=== PATIENT | female | born 1995 | race Caucasian/White ===

== ENCOUNTER 2020-06-30 12:31 | Outpatient (CLI) ==
[~2020-06-30] VITALS: Ht 162.6 cm; Wt 85.8 kg
[2020-06-30 13:06] VITALS: BP 135/83
--- NOTE | 2020-06-30 13:40 | IPNPDOC ---
Obstetrical Progress Note Date of Service June 30, 2020 Subjective 24 yo at 36w5d with FELICITAS of 23 JUL 2020 presents to L&d with complaints of facial numbness after chewing on a piece of gum that lasted for 20 minutes at 1030 today and has now since been resolved. She denies eating anything odd or new. She denies any food allergies or sensitivities. She denies contractions, leaking of fluid, vaginal bleeding, and reports positive movement. Objective Vital Signs Date Time Temp Pulse Resp B/P (MAP) Pulse Ox O2 Delivery O2 Flow Rate FiO2 06/30/20 13:06 98.4 88 16 135/83 (100) 99 Assessment Heart Rate (FHR): 135 Variability: Moderate Accelerations: Positive Decelerations: None Tocometer Contractions: No Assessment and Plan Age: 24 : 2 Term: 1 Pre-term: 0 Abortions: 0 Livin Weeks & Days 36w5d Status: Reassuring Anticipate: Other (Discharge to home, certified not in labor) Additional Comments Discussed with her that symptoms are not related Recommended to follow up with PCM to further evaluate cause of facial numbness FKC and PTL precautions discussed Keep all 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 FENG VILLEGAS CNM June 30, 2020 13:40
== END 2020-06-30 13:42 | disposition home or self-care (01) ==
LOC: M LDO 12:31
PROVIDERS: ATTEND Registered Nurse Maternal Newborn
DX: O26.893 Other specified pregnancy related conditions, third trimester (principal); R20.0 Anesthesia of skin; Z3A.36 36 weeks gestation of pregnancy
CPT/HCPCS: 59025; G0378; G0463

== ENCOUNTER 2020-07-13 03:18 | Outpatient (CLI) ==
[~2020-07-13] VITALS: Ht 162.6 cm; Wt 86.4 kg
[2020-07-13 03:40] VITALS: BP 136/80
[2020-07-13] MEDS ORDERED: PRENTAB9 PO (03:53)
[2020-07-13 03:55] VITALS: BP 122/73
[2020-07-13 06:00] VITALS: BP 117/55
--- NOTE | 2020-07-13 06:33 | IPNPDOC ---
Text Note Date of Service The patient was seen on 07/13/20. NOTE 24 yo at 38+4 weeks gestation presented to L&D with the complaint of leakage of fluid at ~0330. It happened once, and has not been happening since. She denies any bleeding. She endorses mild cramping. She also endorses movement. Chaperoned by RN Vitals - VSS, afebrile, normotensive, non tachycardic General - Laying in bed, AAOX3, NAD Abdomen - Gravid uterus, no fundal tenderness Pelvic - Normal external female genitalia. Speculum inserted into the vagina. Scant amount of white discharge in vaginal vault. Negative pooling. Swabs obtained. Speculum removed. Cervix cl/thick/high to digital exam. Microscopy - negative nitrazine, negative ferning. FHR tracing - Cat I with moderate variability, +accels, no decels. No ctx on toco. Negative SROM workup with negative pooling, negative nitrazine, and negative ferning. Cervix closed. Reassuring status. Patient discharged with return precautions. Follow up scheduled on Sunday in the office. All questions answered. 20 minutes of patient care DO EL Castanon Fishbone, I+O VS, Amarie, I+O Vital Signs Date Time Temp Pulse Resp B/P (MAP) Pulse Ox O2 Delivery O2 Flow Rate FiO2 07/13/20 03:55 103 18 122/73 (89) 07/13/20 03:40 98.6 AMANDA LARKIN DO Jul 13, 2020 06:33
== END 2020-07-13 06:30 | disposition home or self-care (01) ==
LOC: M LDO 03:18
PROVIDERS: ATTEND Obstetrics & Gynecology
DX: O26.893 Other specified pregnancy related conditions, third trimester (principal); Z3A.38 38 weeks gestation of pregnancy; N89.8 Other specified noninflammatory disorders of vagina
CPT/HCPCS: 59025; G0378; G0463

== ENCOUNTER 2020-07-18 19:10 | Inpatient (IN) | payer OTHER ==
[~2020-07-18] VITALS: Ht 162.6 cm; Wt 88.2 kg
[~2020-07-18 19:10] MED LIST: PRENTAB9 PO
[2020-07-18 19:30] VITALS: BP 151/74
[2020-07-18 19:55] VITALS: BP 144/90
[2020-07-18 19:56] VITALS: BP 149/94
[2020-07-18] MEDS ORDERED: CARBOPROST TROMETHAMINE 250 MCG/ML AMP IM PRN (20:05)
[2020-07-18] MEDS ORDERED: OXYTOCIN DRIP 30 UNITS in IV 1 EA IV PRN ×6 (20:05)
[2020-07-18] MEDS ORDERED: OXYTOCIN INJ 10 UNITS/ML VIAL (J2590) IM PRN (20:05)
[2020-07-18] MEDS ORDERED: OXYTOCIN INJ 10 UNITS/ML VIAL (J2590) IV PRN (20:05)
[2020-07-18] MEDS ORDERED: METHYLERGONOVINE MALEATE 0.2 MG/ML VIAL (J2210) IM PRN (20:05)
[2020-07-18] MEDS ORDERED: TRANEXAMIC ACID INJection 1,000 MG in NS 100 ML IV PRN (20:05)
--- NOTE | 2020-07-18 20:16 | HPEPDOC ---
Obstetrical History & Physical General Date of Admission Jul 18, 2020 at 20:09 History of Present Illness Mrs. Alice Can is a 24yo at 39w2d ega, by LMP c/w 1st trimester ultrasound, with PNC c/b Anemia, Excessive Weight Gain In , and Ventricular Echogenic Foci w/ normal Quad screen who presents to rule-out labor. Mrs. Can reports the onset of uterine contractions this morning that have increased in intensity, but are still irregular. She denies LOF & VB. +FM. Otherwise, she denies elevated BPs in this , HAs, RUQ Pain, and [place]. Chief Complaint: Contractions, term Information Provided By: Patient Age: 24 : 2 Term: 1 Pre-term: 0 Abortions: 0 Livin Care Care: Good Care Number of Visits: 7 Dating Final EDC: Jul 23, 2020 Final EDC for Daily Update: Jul 23, 2020 Final EDC by: LMP, 1st trimester (US) LMP: Oct 17, 2019 Weeks + Days: 39 Estimated Date of Confinement: Jul 23, 2020 EGA at Admission: 39 Antepartum Course Diagnos(e)s - Anemia - Excessive Weight Gain In #59.9lbs. - Unsatisfactory Pap Smear - Echogenic Foci on anatomy ultrasound with normal Quad Screen Height (inches): 64 Pre- weight (lbs.): 134.8 Admission Weight (lbs.): 194.7 Change in Weight (lbs.): 59.9 Past Medical History Past Obstetrical History : Past Obstetrical History: Multigravida Date of Delivery: Apr 15, 2012 Gestation: 40 Type of Delivery: Spontaneous Vaginal Del. Sex of : Male Weight of (grams): 3800 Complications: No REFINERY OPERATOR [facility] History: No pertinent history Past Medical History Medical History Negative Surgical History: Denies/None Family History Significant Family History: No pertinent family hx Social History Marital Status: Family situation: Spouse/partner home Psychosocial History: No pertinent psych hx * Smoker: non-smoker Alcohol: Denies Drugs: denies Abuse Violence Screening Have you been hit/kicked/slapp: No Have you been sexually assault: No Imunizations Tdap status: current Influenza Status: current Allergies Coded Allergies: No Known Allergies (Unverified , 06/30/20) Medications Scheduled No.137/Iron/Folic Acd ( Vitamin Tablet) 1 Each Tablet, 1 TAB PO DAILY Physical Examination Physical Examination GENERAL: Alert and oriented times three. ABDOMEN: Gravid and non-tender to touch. FETUS: Is vertex (VTX) by sterile vaginal examination (SVE). LUNGS: Clear to auscultation (CTA). EXTREMITIES: No edema. Vital Signs/I&O Vital Signs Date Time Temp Pulse Resp B/P (MAP) Pulse Ox O2 Delivery O2 Flow Rate FiO2 07/18/20 19:30 98.2 101 151/74 (99) Pertinent Laboratoy Data Blood Type: O+ RBC Antibody Screen: Negative HIV: Negative Hepatitis B: Negative Hepatitis C: Negative Rapid Plasma Reagin: Nonreactive Rubella: Immune Varicella: Immune Chlamydia/Gonorrhea: Negative Group B Streptococcus: Negative Quad Screen Test: Negative Cystic Fibrosis: Negative Glucose Tolerance Test: 149 Anatomy Ultrasound Ultrasound Date: Mar 04, 2020 Placenta Location: Posterior Normal Anatomy: Yes (2 punctate echogenic foci in the left cardiac ventricle measuring approximately 0.16cm & 0.13cm.) Placenta Previa: No Steroid Therapy Steroid Therapy: No Vaginal Examination Dilation: 2cm Effacement: 70% Station: -1, 0 Cervical Consistency: Medium Cervical Position: Posterior Presentation: Cephalic presentation Assessment Heart Rate (FHR): 150 Variability: Moderate Accelerations: Positive Decelerations: None Tocometer Contractions: Yes Frequency: regular, every 1-3 min. Assessment/Plan Assessment 24yo at 39w2d ega, by LMP c/w 1st trimester ultrasound, who presents with SVE of 2/70/0. Interestingly, the patient was found to have three consecutive mild range BPs without symptoms of pre-eclampsia. Plan Admit and orient. Case Work Aide and consent. Diet: Clear liquid. Group B Streptococcus (GBS) negative. Labs and intravenous (IV) per unit protocol. Counseled on Pitocin and induction of labor (IOL). Tox labs: Pending Lactated Ringers (LR): at 125mL/hr. Anticipate normal spontaneous delivery (). C-S as appropriate. Stanislav Lora., Ph.D. YUDY & OB-REFINERY OPERATOR [facility] Staff KEL SHARIF M.D. Jul 18, 2020 20:16
[2020-07-18 21:16] VITALS: BP 148/90
[2020-07-18 21:17] LABS: HEMATOCRIT 30.7 % (36.0-47.0); HEMOGLOBIN 9.5 g/dl (12.0-15.5); MEAN CORPUSCULAR HEMOGLOBIN 22.6 pg (27.0-33.0); MEAN CORPUSCULAR HGB CONC 30.9 g/dl (32.0-36.5); MEAN CORPUSCULAR VOLUME 72.9 fl (80.0-96.0); PLATELET COUNT, AUTOMATED 277 10^3/uL (150-450); RED BLOOD COUNT 4.21 10^6/uL (4.00-5.40); WHITE BLOOD COUNT 9.3 10^3/uL (4.0-10.0)
[2020-07-18 21:24] LABS: ALT/SGPT 11 U/L (12-78); BILIRUBIN,TOTAL 0.4 MG/DL (0.2-1.0); CREATININE FOR GFR 0.57 MG/DL (0.55-1.30); GLOMERULAR FILTRATION RATE > 60.0 (>60); LDH LACTATE DEHYDROGENASE 172 U/L (84-246); URIC ACID 4.3 MG/DL (2.6-6.0)
[2020-07-18 21:36] LABS: TOTAL PROTEIN,RANDOM URINE 127.5 MG/DL (0.0-12.0)
[2020-07-18 22:13] VITALS: BP 138/83
[2020-07-18] MEDS ORDERED: BUTORPHANOL 2 MG/ML INJ (J0595) IV ONE (23:50)
[2020-07-18] MEDS ORDERED: PROMETHAZINE INJ 25 MG/ML VIAL (J2550) IV ONE (23:50)
[2020-07-18 23:56] VITALS: BP 136/84
[2020-07-19] VITALS (40 sets, daily range): BP systolic 115–178; BP diastolic 56–100
[2020-07-19] MEDS ORDERED: OXYTOCIN DRIP 30 UNITS in IV 1 EA IV SCH (04:15)
--- NOTE | 2020-07-19 04:32 | IPNPDOC ---
Obstetrical Progress Note Date of Service Jul 19, 2020 Subjective Mrs. Alice Can is a 24yo at 39w3d ega, by LMP c/w 1st trimester ultrasound, with PNC c/b Anemia, Excessive Weight Gain In , and Ventricular Echogenic Foci w/ normal Quad screen admitted for mild-range BPs at term. Patient is comfortable s/p Stadol & Phenergan. She also denies HAs, RUQ pain, scotomata & new onset edema. Objective Vital Signs Date Time Temp Pulse Resp B/P (MAP) Pulse Ox O2 Delivery O2 Flow Rate FiO2 07/19/20 00:17 14 07/18/20 23:56 90 136/84 (101) 07/18/20 19:30 98.2 Assessment Heart Rate (FHR): 130 Variability: Moderate Accelerations: Positive Decelerations: Early, Late Heart Rate Tracing: Category II Tocometer Contractions: Yes Frequency: irregular Sterile Vaginal Examination Dilation: 2cm Effacement (%): 70% Station: -1, 0 Cervical Consistency: Soft Cervical Position: Posterior Postion/Presentation: Cephalic presentation Assessment and Plan Age: 24 : 2 Term: 1 Pre-term: 0 Abortions: 0 Livin EGA at Admission: 39 Weeks & Days 39w3d Status: Reassuring Group B Streptococcus: Negative Anticipate: Vaginal Delivery Additional Comments - Patient is now unchanged over 4-hours - Start Pitocin & titrate to effect. - Repeat SVE in 4-hours, or as clinically appropriate - Patient has remained normotensive after her first three BP readings at admission. Tox labs were normal. Stanislav Lora., Ph.D. YUDY Staff KEL SHARIF M.D. Jul 19, 2020 04:32
[2020-07-19] MEDS ORDERED: FENTANYL 2MCG/ML ROPIVACAINE 0.2% IN 0.9% NACL 100ML IVBAG As Ordered ONE (06:35)
[2020-07-19] MEDS ORDERED: LACTATED RINGER'S 1000 ML IV PRN (07:45)
[2020-07-19] MEDS ORDERED: EPIDURAL COMMENT XX SCH (07:45)
[2020-07-19] MEDS ORDERED: ePHEDrine SULFATE 25 MG/5 ML(5MG/ML) SYRINGE IV PRN (07:45)
[2020-07-19] MEDS ORDERED: diphenhydrAMINE 50MG/ML VIAL (J1200) IV PRN (07:45)
[2020-07-19] MEDS ORDERED: REFRIGERATOR IV KEYS XX PRN (07:45)
[2020-07-19] MEDS ORDERED: EPIDURAL/PCA KEYS XX PRN (07:45)
[2020-07-19] MEDS ORDERED: FENTANYL/ROPIVACAINE/NACL BAG 100 ML EPIDURAL SCH (07:45)
[2020-07-19] MEDS ORDERED: ONDANSETRON 4MG/2ML VIAL IV PRN (07:45)
[2020-07-19] MEDS ORDERED: NALOXONE INJ 0.4MG/1ML VIAL (J2310 PER 1MG) IV PRN (07:45)
--- NOTE | 2020-07-19 08:44 | IPNPDOC ---
Obstetrical Progress Note Date of Service Jul 19, 2020 Subjective 24 yo at 39w3d admitted for IOL for mildly elevated BP. She is without any complaints at this time. She denies headache, chest pain, RUQ pain, and visual changes. She has been resting well and is comfortable with her epidural. She has supportive family at the bedside. Objective Vital Signs Date Time Temp Pulse Resp B/P (MAP) Pulse Ox O2 Delivery O2 Flow Rate FiO2 07/19/20 08:14 99 136/72 (93) 07/19/20 00:17 14 07/18/20 19:30 98.2 AROM for meconium stained fluid Assessment Heart Rate (FHR): 145 Variability: Moderate Accelerations: Present Decelerations: None Tocometer Contractions: Yes Duration: other (every 5-6 minutes) Sterile Vaginal Examination Dilation: 8 cm Effacement (%): 90% Station: -2 Cervical Consistency: Soft Cervical Position: Middle Postion/Presentation: Cephalic presentation Assessment and Plan Age: 24 : 2 Term: 1 Pre-term: 0 Abortions: 0 Livin Weeks & Days 39w3d Status: Reassuring Group B Streptococcus: Negative Anticipate: Vaginal Delivery FENG VILLEGAS CNM Jul 19, 2020 08:44
--- NOTE | 2020-07-19 12:15 | IPNPDOC ---
Obstetrical Progress Note Date of Service Jul 19, 2020 Subjective 24 yo at 39w3d admitted for IOL for mildly elevated BP. She remains comfortable with her epidural. She reports that she feels pressure even without contractions. She denies headache, chest pain, RUQ pain, and visual changes. She has supportive family at the bedside. Objective Vital Signs Date Time Temp Pulse Resp B/P (MAP) Pulse Ox O2 Delivery O2 Flow Rate FiO2 07/19/20 08:14 99 136/72 (93) 07/19/20 00:17 14 07/18/20 19:30 98.2 Pitocin at 4 mu/min No descent of head with practice pushing efforts Assessment Heart Rate (FHR): 135 Variability: Moderate Accelerations: Present Decelerations: Variable Tocometer Contractions: Yes Frequency: other (every 3-6 minutes) Sterile Vaginal Examination Dilation: complete Effacement (%): 100% Station: +1 Postion/Presentation: Cephalic presentation Assessment and Plan Age: 24 : 2 Term: 1 Pre-term: 0 Abortions: 0 Livin EGA at Admission: 1 Weeks & Days 39w3d Status: Reassuring Group B Streptococcus: Negative Anticipate: Vaginal Delivery Additional Comments Discussed options with the patient: can start to push now or can labor down until she feels urge to push She has decided that she would like to labor down until she feels urge to push FENG VILLEGAS CNM Jul 19, 2020 12:15
[2020-07-19] MEDS ORDERED: IBUPROFEN 600MG TAB PO PRN (15:00)
[2020-07-19] MEDS ORDERED: RHOGAM 300 MCG (1500 IU) INJ (J2790) IM SCH (15:00)
[2020-07-19] MEDS ORDERED: IBUPROFEN 800 MG TAB PO PRN (15:00)
[2020-07-19] MEDS ORDERED: PROMETHAZINE 25 MG TAB PO PRN (15:00)
[2020-07-19] MEDS ORDERED: ACETAMINOPHEN 500 MG TAB PO PRN (15:00)
[2020-07-19] MEDS ORDERED: ACETAMINOPHEN TAB 650MG DOSE (2X325MG) PO PRN (15:00)
[2020-07-19] MEDS ORDERED: METHYLERGONOVINE MALEATE 0.2 MG TAB PO PRN (15:00)
[2020-07-19] MEDS ORDERED: MEASLES,MUMPS,RUBELLA VACCINE INJ (MMR-II) (90707) SC SCH (15:00)
--- NOTE | 2020-07-19 15:09 | DNPDOC ---
[facility] Delivery Note Delivery Note Date of the procedure: 19 JUL 2020 Preoperative diagnosis: 1. 24 y/o at 39w3d 2. IOL labor for mildly elevated BP 3. GBS negative 4. O positive 5. Anemia in this 6. Meconium Postoperative diagnosis: 1. 24 y/o G2 now P2002 at 39w3d 2. IOL labor for mildly elevated BP 3. GBS negative 4. O positive 5. Anemia in this 6. Meconium Procedure: Delivering Provider: VANESSA Vogt CNM, JAXSON Motor Vehicle Escort Driver Back-up: Dr. Apollo Lindsey Anesthesia: Epidural EBL: 150 ml Specimens: Cord blood collected. Findings: Live male weighing 8 lb 4 oz, 370 grams with Apgars of 6 and 9 at 1 and 5 minutes respectively. Complications: None Details of the procedure: The patient presented complaining of contractions and was found to be in latent labor with mildly elevated BP. Patient was 2 cm dilated and was then admitted to L&D. Labor progressed with Pitocin and membranes were ruptured artificially for meconium stained fluid.. The patient progressed to fully dilated and entered the second stage of labor, at which point she began to push over an intact perineum. The head was then delivered. The nuchal cord was not noted. The rest of the was delivered. The was placed on maternal abdomen and the cord was doubly clamped and cut. Cord blood was collected and a 3 vessel cord was noted. Manual exploration of the uterus was not performed. Uterine tone was firm. Perineum was inspected and no laceration was found. Cervical exam was normal. Rectal exam was not noted. Sponge, instrument, and needle counts were correct. The patient tolerated the procedure well and is stable in recovery. Note was written and electronically signed by: VANESSA Vogt CNM, FENG HICKS CNM Jul 19, 2020 15:06
[2020-07-19] MEDS ORDERED: DIBUCAINE 1% OINTMENT 30GM TOP PRN (16:00)
[2020-07-19] MEDS: DOCUSATE SODIUM 100MG CAPSULE PO SCH (20:18)
[2020-07-20 06:00] VITALS: BP 116/65
--- NOTE | 2020-07-20 07:08 | IPNPDOC ---
Progress Note Date of Service: Jul 20, 2020 Progress Note Ms. Can is a 24 yo G2 now P2 who underwent an uncomplicated yesterday after being admitted for early labor and elevated BP. She ruled in for Pre E based on a urine pr:cr of 0.79. Her BP post delivery has been mostly normal to only very mildly elevated. This morning Alice reports feeling well and has no complaints. She denies any headaches, RUQ pain, or visual changes. She is ambulating, voiding, and tolerating a regular diet. Her lochia is minimal. Vitals - VSS, afebrile, normotensive, non tachycardic General - AAOX3, sitting up in bed, pleasant and conversant, NAD Abdomen - Fundus firm at U-2. No fundal tenderness. Extremities - No edema Alice is doing well and is making an appropriate recovery. She desires to have her son circumcised today. Will monitor BP closely throughout the day. Anticipate DC home tomorrow. All patient questions answered. César VS, I&O, Nola, Stephie Vital Signs/I&O Vital Signs Date Time Temp Pulse Resp B/P (MAP) Pulse Ox O2 Delivery O2 Flow Rate FiO2 07/20/20 06:00 97.8 86 18 116/65 (82) 98 Room Air I&O- Last 24 Hours up to 6 AM 07/20/20 06:00 Intake Total 1060 ml Output Total 1150 ml Balance -90 ml Laboratory Data 24H LABS Laboratory Tests 2 07/20/20 06:32: CBC/BMP AMANDA LARKIN DO Jul 20, 2020 07:08
[2020-07-20 07:14] LABS: HEMATOCRIT 28.6 % (36.0-47.0); HEMOGLOBIN 8.6 g/dl (12.0-15.5); MEAN CORPUSCULAR HEMOGLOBIN 21.9 pg (27.0-33.0); MEAN CORPUSCULAR HGB CONC 30.1 g/dl (32.0-36.5); MEAN CORPUSCULAR VOLUME 72.8 fl (80.0-96.0); PLATELET COUNT, AUTOMATED 238 10^3/uL (150-450); RED BLOOD COUNT 3.93 10^6/uL (4.00-5.40)
[2020-07-20 07:39] LABS: ALT/SGPT 10 U/L (12-78); BILIRUBIN,TOTAL 0.6 MG/DL (0.2-1.0); CREATININE FOR GFR 0.48 MG/DL (0.55-1.30); GLOMERULAR FILTRATION RATE > 60.0 (>60); LDH LACTATE DEHYDROGENASE 277 U/L (84-246); URIC ACID 4.9 MG/DL (2.6-6.0)
[2020-07-20] MEDS: DOCUSATE SODIUM 100MG CAPSULE PO SCH ×2 (09:26→20:48)
[2020-07-20] MEDS: PRENATAL VITAMINS CHEWABLE TABLET PO SCH (09:26)
[2020-07-20 17:52] VITALS: BP 136/90
[2020-07-21 06:00] VITALS: BP 120/66
[2020-07-21] MEDS ORDERED: DIBU28OI2 TOP (07:12)
[2020-07-21] MEDS ORDERED: DOK1CAP7 PO (07:12)
[2020-07-21] MEDS ORDERED: IBUP-1022 PO (07:12)
[2020-07-21] MEDS: PRENATAL VITAMINS CHEWABLE TABLET PO SCH (08:00)
[2020-07-21] MEDS: DOCUSATE SODIUM 100MG CAPSULE PO SCH (08:00)
--- NOTE | 2020-07-21 09:15 | DSES ---
DISCHARGE SUMMARY DATE OF ADMISSION: 07/18/2020 DATE OF DISCHARGE: 24-year-old, 2, now para 2, admitted at 39 and 2 weeks of gestation with contractions, had a spontaneous vaginal delivery with epidural, male , 8 pounds 4 ounces, 3700 grams, scores of 6 and 9 at 1 and 5 minutes, respectively. Her only risk factor is she had anemia during her . The rest of the examination is unremarkable. Normocephalic, atraumatic. Neck full range of motion. Pupils equal and reactive to light. Distal pulses are symmetric. No evidence of deep venous thrombosis (DVT), pulmonary embolus (PE), or superficial phlebitis. Chest is clear bilaterally to the bases. No wheezes or rhonchi. No costovertebral angle (CVA) tenderness. Abdomen soft, four quadrant bowel sounds are noted. Uterus 2 below, lochia is moderate, perineum is intact. No rashes, lesions, or pruritus. No arthralgia, myalgia, no complaint of joint pain. No complaint of cough, wheeze, shortness of breath, or dyspnea on exertion. No nausea, vomiting, diarrhea, or constipation. No urgency or frequency. In summary, we have a term gestation who delivered a live male infant. On discharge, her hemoglobin was 8.6, hematocrit 28.6, and platelets 238. Admitting hemoglobin 9.5, hematocrit 30.7, and platelets were 277. On discharge, her blood pressure is 120/66, respirations are 18, pulse 77, temperature is 98.0. We had a 20 minute discussion, all questions were answered. Medications to be picked up at pharmacy at [place]. Six week checkup at [facility] ([facility]). All questions were answered. Patient discharged improved.
== END 2020-07-21 11:40 | disposition home or self-care (01) | DRG 807 ==
LOC: M LDO 19:10 → M LDI 20:09 → M OBS 07-19 17:02
PROVIDERS: ADMIT Obstetrics & Gynecology Reproductive Endocrinology; ATTEND Registered Nurse Maternal Newborn
PROC: 10E0XZZ Delivery of Products of Conception, External Approach (ICD-10-PCS; principal; 2020-07-19)
DX: O99.02 Anemia complicating childbirth (principal); Z37.0 Single live birth; D64.9 Anemia, unspecified; Z3A.39 39 weeks gestation of pregnancy; O14.04 Mild to moderate pre-eclampsia, complicating childbirth

== ENCOUNTER 2020-11-16 11:41 | Emergency (ER) | payer OTHER ==
[~2020-11-16] VITALS: Ht 162.6 cm; Wt 68.1 kg
[~2020-11-16 11:41] MED LIST changes: +DIBU28OI2 TOP; +DOK1CAP4 PO; +IBUP-1022 PO
[2020-11-16 12:35] LABS: BASO % 0.5 % (0.0-1.0); EOS # 0.3 10^3/uL (0.0-0.5); EOS % 4.8 % (0.0-3.0); HEMATOCRIT 40.1 % (36.0-47.0); HEMOGLOBIN 13.2 g/dl (12.0-15.5); LYMPH # 1.5 10^3/uL (1.5-5.0); LYMPH % 25.8 % (24.0-44.0); MEAN CORPUSCULAR HEMOGLOBIN 26.2 pg (27.0-33.0); MEAN CORPUSCULAR HGB CONC 32.9 g/dl (32.0-36.5); MEAN CORPUSCULAR VOLUME 79.6 fl (80.0-96.0); MONO # 0.3 10^3/uL (0.0-0.8); MONO % 4.6 % (2.0-8.0); NEUTROPHILS # 3.8 10^3/uL (1.5-8.5); NEUTROPHILS % 64.1 % (36.0-66.0); PLATELET COUNT, AUTOMATED 274 10^3/uL (150-450); RED BLOOD COUNT 5.04 10^6/uL (4.00-5.40); WHITE BLOOD COUNT 5.9 10^3/uL (4.0-10.0)
[2020-11-16 12:57] LABS: ERYTHROCYTE SEDIMENTATION RATE 8 mm/hr (0-20)
[2020-11-16 13:04] LABS: BLOOD UREA NITROGEN 10 MG/DL (7-18); C REACTIVE PROTEIN QUANTITATIV 0.38 MG/DL (0.00-0.30); CALCIUM LEVEL 9.1 MG/DL (8.5-10.1); CARBON DIOXIDE LEVEL 26 MEQ/L (21-32); CHLORIDE LEVEL 109 MEQ/L (98-107); CK-MB VALUE MASS < 1.0 NG/ML (<3.6); CPK CREATINE PHOSPHOKINASE 60 U/L (26-192); CREATININE FOR GFR 0.98 MG/DL (0.55-1.30); GLOMERULAR FILTRATION RATE > 60.0 (>60); GLUCOSE, FASTING 95 MG/DL (70-100); MB/CK RELATIVE INDEX 1.67 (< OR =4); POTASSIUM SERUM 4.2 MEQ/L (3.5-5.1); SODIUM LEVEL 140 MEQ/L (136-145); TROPONIN I < 0.02 NG/ML (< 0.10)
[2020-11-16] MEDS ORDERED: NS 1,000 ML IV ONE (14:35)
[2020-11-16] MEDS ORDERED: ISOVUE-370 76% 100ML VIAL As Ordered ONE (14:39)
--- NOTE | 2020-11-16 15:33 | REP ---
INDICATION: chest pain r/o PE COMPARISON: None. TECHNIQUE: Axial contrast enhanced images from the thoracic inlet to the upper abdomen using pulmonary embolus technique with multiplanar re-formations. 75 ml Isovue 370 intravenous contrast material administered without complication. This CT examination was performed using the following dose reduction techniques: Automated exposure control, adjustment of mA and/or kv according to the patient's size, and use of iterative reconstruction technique. FINDINGS: Satisfactory enhancement of the pulmonary vasculature is achieved and no filling defects are identified to suggest pulmonary embolus. Further evaluation of the mediastinum demonstrates normal thoracic aorta, heart and pericardium. The bilateral lung jansen are well aerated and clear without consolidation pleural effusion or pneumothorax. Tracheobronchial tree is patent. No nodule or mass lesion is identified. No adenopathy noted. Surrounding musculoskeletal structures intact IMPRESSION: No evidence for pulmonary embolus. No acute mediastinal or pleural parenchymal process. <Electronically signed by Martell Burgess > 11/16/20 1957
[2020-11-16 16:04] VITALS: BP 119/69
--- NOTE | 2020-11-17 17:34 | ECGEPIP ---
[facility] - ED Test Date: 2020-11-16 Pat Name: AMPARO PALOMARES Department: Room: - Gender: Female Store Clerk Cashier: SAVANNA : 1995 Requested By: Georgina Ren Order Number: [id number] Reading MD: Georgina Ren Measurements Intervals [place] Rate: 83 P: 46 NV: 140 QRS: 52 QRSD: 82 T: 34 QT: 366 QTc: 430 Interpretive Statements Normal sinus rhythm No prior Electronically Signed on 11-17-2020 17:33:33 EDT by Georgina Ren
== END 2020-11-16 16:08 | disposition home or self-care (01) ==
LOC: M ED 11:41
DX: R07.89 Other chest pain (principal)
CPT/HCPCS: 36415; 71275; 80048; 82550; 82553; 84484; 84702; 85025; 85379; 85652; 86140; 93005; 96360; 96361; 99284; Q9967

== ENCOUNTER 2023-04-22 15:09 | Emergency (ER) | payer OTHER ==
[~2023-04-22] VITALS: Ht 162.6 cm; Wt 61.3 kg
[2023-04-22 15:10] VITALS: BP 132/78; TEMP 98.2; O2SAT 100
[2023-04-22 16:43] LABS: HCG, SERUM QUALITATIVE NEGATIVE (NEGATIVE)
[2023-04-22 16:47] LABS: HEPATITIS B SURFACE ANTIBODY POSITIVE (POSITIVE)
[2023-04-22 16:57] LABS: Trichomonas vaginalis (AMP) NOT DETECTED (NEGATIVE)
[2023-04-22 17:13] LABS: HIV 1&2 SCREEN NEGATIVE (NEGATIVE)
[2023-04-22 17:20] LABS: GC DNA AMPLIFICATION NEGATIVE (NEGATIVE); HEPATITIS C VIRUS ABY INDEX 0.02 INDEX (<0.8)
== END 2023-04-22 18:12 | disposition home or self-care (01) ==
LOC: M ED 15:09
DX: Z11.3 Encounter for screening for infections with a predominantly sexual mode of transmission (principal)